=== PATIENT | female | born 1935 | race Caucasian/White ===

== ENCOUNTER → 2018-05-29 | Outpatient (CLI) | payer MEDICARE, BC ==
--- NOTE | 2018-05-29 10:23 | Diagnostic Imaging Report ---
INDICATION: Fall on ice. COMPARISON: None FINDINGS: Frontal and lateral radiographic views of the right tibia and fibula were obtained. There are postsurgical changes of previous ORIF of the right ankle. 3 metallic pins are seen traversing the medial malleolus. Orthopedic sideplate and screws are seen traversing the lateral margins of the distal fibula. No unexpected radiopaque foreign bodies are seen. There is no evidence of hardware fracture or failure. There is mild generalized soft tissue edema about the right ankle. There is, however, no evidence of acute fracture or dislocation. Note is made of moderate calcified aortic atherosclerosis. IMPRESSION: 1. Postsurgical changes to the right ankle as described above. 2. Soft tissue edema about the right ankle, but no definite acute fracture or dislocation. Dictated by: Dictated on workstation # [id number]
--- NOTE | 2018-05-29 11:29 | Diagnostic Imaging Report ---
INDICATION: Fell on ice two weeks ago. FINDINGS: Severe soft tissue swelling about the ankle lateral greater than medial is present. Pins transfix the medial malleolus and there are plate and screws at the distal fibula. No unhealed or acute fracture line is found. No disruption of the hardware. No dislocation of the ankle. IMPRESSION: Postsurgical changes with no residual fracture evident. Severe swelling about the ankle but no acute bony injury or hardware disruption identified. Dictated by: Dictated on workstation # [id number]
== END ==
LOC: RAD FS 08:58
PROVIDERS: ATTEND Nurse Practitioner
DX: S93.401A Sprain of unspecified ligament of right ankle, initial encounter (principal); I70.0 Atherosclerosis of aorta; R60.0 Localized edema; M79.661 Pain in right lower leg; W00.9XXA Unspecified fall due to ice and snow, initial encounter; Z98.890 Other specified postprocedural states
CPT/HCPCS: 73590; 73610

== ENCOUNTER → 2018-12-18 | Outpatient (CLI) | payer MEDICARE ==
--- NOTE | 2018-12-18 15:21 | Diagnostic Imaging Report ---
PROCEDURE: MRI lumbar spine. TECHNIQUE: Multiplanar, multisequence MRI of the lumbar spine was performed without contrast. INDICATION: Increasing low back pain. Patient reports multiple falls. COMPARISON: No prior MRI studies are available for comparison. FINDINGS: There is scoliotic curvature to the lumbar spine, convex to the right in the upper portion and convex to the left in the lower portion. There is normal lordotic curvature. There is minimal retrolisthesis of L3 on L4. There is some anterior and central compression deformity involving the T12 vertebral body. This does demonstrate some low signal on T1-weighted images consistent with acute or subacute fracture. No definite retropulsion is seen. The lumbar vertebrae demonstrate normal stature and are without evidence of acute compression fracture. There is severe degenerative disc disease throughout the lumbar spine with variable disc space narrowing and desiccation with marginal osteophyte formation. The conus is unremarkable at the T12 level. T11-T12: The central canal is patent. Neural foramina appear patent. T12-L1: The central canal and neural foramina are widely patent. L1-L2: The central canal is widely patent. Neural foramina appear patent. L2-L3: Broad-based disc/osteophyte complex indents the ventral thecal sac. There are facet changes. Central canal is patent, although there is severe bilateral lateral recess stenosis. There also appears to be moderate bilateral neural foraminal stenosis. L3-L4: Broad-based disc/osteophyte complex indents the ventral thecal sac. Central canal is patent. There is severe bilateral lateral recess stenosis. There is severe right and mild left neural foraminal stenosis. L4-L5: Broad-based disc/osteophyte complex and facet changes produce severe central canal stenosis. There is complete effacement of the thecal sac. Severe left and moderate right neural foraminal stenosis is seen. L5-S1: Facet changes are noted. There is broad-based disc/osteophyte complex present. Thecal sac is completely effaced with no identifiable CSF. Neural foramina are patent. Paraspinous tissues are unremarkable. IMPRESSION: 1. Severe lumbar spondylosis and scoliosis, as described. This is most severe at the L4-L5 level where there is complete effacement of the thecal sac. There is multilevel lateral recess and neural foraminal stenosis, described level by level above. No acute lumbar compression fracture is seen. There does appear to be an acute/subacute superior endplate fracture involving the T12 vertebral body. No retropulsion is seen. Dictated by: Dictated on workstation # [id number]
== END ==
LOC: RAD 14:05
PROVIDERS: ATTEND Family Medicine
DX: M41.86 Other forms of scoliosis, lumbar region (principal); M43.8X4 Other specified deforming dorsopathies, thoracic region; M47.816 Spondylosis without myelopathy or radiculopathy, lumbar region; M48.061 Spinal stenosis, lumbar region without neurogenic claudication; M51.36 Other intervertebral disc degeneration, lumbar region
CPT/HCPCS: 72148

== ENCOUNTER → 2020-03-30 | Outpatient (CLI) | payer MEDICARE ==
--- NOTE | 2020-03-30 11:12 | Diagnostic Imaging Report ---
INDICATION: Left-sided abdominal pain. COMPARISON: None FINDINGS: 2 frontal radiographic views of the abdomen were obtained. Small bowel loops are nondistended. There is no large collection of free intraperitoneal air. No unexpected extraosseous calcifications or radiopaque foreign bodies are seen. Osseous structures show moderate levoscoliotic deformity lumbar spine with advanced multilevel degenerative changes. Included portions of the lung bases are clear. IMPRESSION: Nonobstructed small bowel gas pattern. Dictated by: Dictated on workstation # [id number]
== END ==
LOC: RAD FS 10:39
PROVIDERS: ATTEND Family Medicine
DX: K57.92 Diverticulitis of intestine, part unspecified, without perforation or abscess without bleeding (principal)
CPT/HCPCS: 74018

== ENCOUNTER 2020-11-29 10:06 | Observation (INO) | payer MEDICARE ==
[~2020-11-29] VITALS: Ht 157.5 cm; Wt 78.5 kg
--- OUTSIDE RECORDS SUMMARY | 2020-11-29 10:10 | XMS REPORT | Clinical Summary ---
Author Author [facility] Organization [facility] Address Unknown Phone Unavailable Care Team Providers Care Dynamite Shooter Name Role Phone PCP Unavailable Source Comments [facility] ([facility]) documents do [facility] appear [facility] the [facility] Allergies Not on File Medications Please verify current medications with patient. Not on file Active Problems Not on file Social History Date Tobacco Use Types Packs/Day Years Used Never Assessed Sex Assigned at Date Recorded Not on file Last Filed Vital Signs Not on file Plan of Treatment Health Maintenance Due Date Last Done Comments COVID-19 Vaccine (1) 1947 DXA Scan 09/12/1999 Pneumococcal Vaccine: 65+ 09/12/1999 Years (1 of 1 - PPSV23) Influenza Vaccine (#1) 2020 HPV Vaccine Aged Out No longer eligible based on patient's age to complete this topic Results Not on filefrom Last 3 Months
[2020-11-29 10:24] LABS: BASOPHILS # (AUTO) 0.1 10^3/uL (0.0-0.1); BASOPHILS % (AUTO) 1 % (0-10); EOSINOPHILS # (AUTO) 0.4 10^3/uL (0.0-0.3); EOSINOPHILS % (AUTO) 8 % (0-10); HEMATOCRIT 35 % (35-52); HEMOGLOBIN 11.3 g/dL (11.5-16.0); LYMPHOCYTES # (AUTO) 2.1 X 10^3 (1.0-4.0); LYMPHOCYTES % (AUTO) 36 % (12-44); MEAN CORPUSCULAR HEMOGLOBIN 33 pg (25-34); MEAN CORPUSCULAR HGB CONC 32 g/dL (32-36); MEAN CORPUSCULAR VOLUME 103 fL (80-99); MONOCYTES # (AUTO) 0.3 X 10^3 (0.0-1.0); MONOCYTES % (AUTO) 6 % (0-12); NEUTROPHILS # (AUTO) 2.8 X 10^3 (1.8-7.8); NEUTROPHILS % (AUTO) 49 % (42-75); PLATELET COUNT 282 10^3/uL (130-400); WHITE BLOOD COUNT 5.6 10^3/uL (4.3-11.0)
--- NOTE | 2020-11-29 10:26 | ED Syncope ---
General Stated Complaint: SYNCOPAL EPISODE History of Present Illness Date Seen by Provider: Nov 29, 2020 Time Seen by Provider: 10:21 Initial Comments 85-year-old female presents after passing out at home. Patient was walking into her garage getting ready to leave to go [facility] [employer] when she felt lightheaded and the next thing she knew she was waking up on the ground. She does not remember falling, it happened suddenly and the only preceding symptom she had was the dizziness. Denies chest pain, palpitations, rapid heart rate or shortness of air. Denies abdominal pain, nausea vomiting. Denies preceding illness, fever or chills. No significant heart history. Patient does state that she has been seen physical therapy for ongoing vertigo, she takes meclizine frequently for t he same. She has not been evaluated for any heart problems. Patient denies any injury or pain. States that she is feeling better on arrival Allergies and Home Medications Allergies Coded Allergies: No Known Drug Allergies (Unverified , 11/29/20) Patient Home Medication List Home Medication List Reviewed: Yes Review of Systems Constitutional: No chills; dizziness; No fever, No malaise, No weakness Respiratory: No cough, No short of breath Cardiovascular: No chest pain, No edema, No palpitations; syncope Gastrointestinal: No abdominal pain, No loss of appetite, No nausea, No vomiting Psychiatric/Neurological: Denies Headache, Denies Numbness, Denies Paresthesia, Denies Seizure, Denies Tingling, Denies Tremors, Denies Weakness Past [id number]-Mvwgfr Hx Patient Social History Tobacco Use?: No Alcohol Use?: No Physical Exam Vital Signs Vital Signs - First Documented 11/29/20 10:07 Temp 36.2 Pulse 42 Resp 15 B/P (MAP) 160/57 (91) Pulse Ox 97 O2 Delivery Room Air Capillary Refill : Height, Weight, BMI Height: '" Weight: lbs. oz. kg; BMI Method: General Appearance: No Apparent Distress, WD/WN HEENT: PERRL/EOMI, Normal ENT Inspection Neck: Non Tender, Supple Cardiovascular: Regular Rate, Rhythm, No Edema, No Gallop, No JVD, No Murmur Respiratory: Chest Non Tender, Lungs Clear, Normal Breath Sounds, No Accessory Muscle Use Gastrointestinal: Non Tender, Soft Back: Normal Inspection, No CVA Tenderness Extremities: Normal Capillary Refill, Normal Range of Motion, Non Tender Neurologic/Psychiatric: Alert, Oriented x3, No Motor/Sensory Deficits, Normal Mood/Affect Cranial Nerves: Normal Hearing, Normal Speech Motor/Sensory: No Motor Deficit, No Sensory Deficit, No Pronator Drift Skin: Normal Color, Warm/Dry Progress/Results/Core Measures Results/Orders Lab Results Laboratory Tests Test 11/29/20 10:15 Range/Units White Blood Count 5.6 4.3-11.0 10^3/uL Red Blood Count 3.41 L 3.80-5.11 10^6/uL Hemoglobin 11.3 L 11.5-16.0 g/dL Hematocrit 35 35-52 % Mean Corpuscular Volume 103 H 80-99 fL Mean Corpuscular Hemoglobin 33 25-34 pg Mean Corpuscular Hemoglobin Concent 32 32-36 g/dL Red Cell Distribution Width 15.0 H 10.0-14.5 % Platelet Count 282 130-400 10^3/uL Mean Platelet Volume 9.0 9.0-12.2 fL Immature Granulocyte % (Auto) 0 % Neutrophils (%) (Auto) 49 42-75 % Lymphocytes (%) (Auto) 36 12-44 % Monocytes (%) (Auto) 6 0-12 % Eosinophils (%) (Auto) 8 0-10 % Basophils (%) (Auto) 1 0-10 % Neutrophils # (Auto) 2.8 1.8-7.8 X 10^3 Lymphocytes # (Auto) 2.1 1.0-4.0 X 10^3 Monocytes # (Auto) 0.3 0.0-1.0 X 10^3 Eosinophils # (Auto) 0.4 H 0.0-0.3 10^3/uL Basophils # (Auto) 0.1 0.0-0.1 10^3/uL Immature Granulocyte # (Auto) 0.0 0.0-0.1 10^3/uL Sodium Level 142 135-145 MMOL/L Potassium Level 4.1 3.6-5.0 MMOL/L Chloride Level 109 H 98-107 MMOL/L Carbon Dioxide Level 21 21-32 MMOL/L Anion Gap 12 5-14 MMOL/L Blood Urea Nitrogen 21 H 7-18 MG/DL Creatinine 0.78 0.60-1.30 MG/DL Estimat Glomerular Filtration Rate 70 BUN/Creatinine Ratio 27 Glucose Level 184 H 70-105 MG/DL Calcium Level 8.7 8.5-10.1 MG/DL Corrected Calcium 8.7 8.5-10.1 MG/DL Total Bilirubin 0.6 0.1-1.0 MG/DL Aspartate Amino Transf (AST/SGOT) 14 5-34 U/L Alanine Aminotransferase (ALT/SGPT) 8 0-55 U/L Alkaline Phosphatase 45 40-136 U/L Troponin I < 0.30 <0.30 NG/ML Total Protein 6.1 L 6.4-8.2 GM/DL Albumin 4.0 3.2-4.5 GM/DL My Orders Orders - ROVENSTINE,GRIFFIN L DO Ed Iv/Invasive Line Start (11/29/20 10:19) Troponin I Fs (11/29/20 10:19) Cbc With Automated Diff (11/29/20 10:19) Comprehensive Metabolic Panel (11/29/20 10:19) Chest 1 View Ap/Pa Only (11/29/20 10:19) Ekg Tracing (11/29/20 10:19) Vital Signs/I&O 11/29/20 10:07 Temp 36.2 Pulse 42 Resp 15 B/P (MAP) 160/57 (91) Pulse Ox 97 O2 Delivery Room Air Progress Progress Note : Progress Note Patient bradycardic when initially placed 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 Impression Primary Impression: Episode of syncope Qualified Codes: R55 - Syncope and collapse Additional Impression: Bradycardia Disposition: 30 STILL A PATIENT Condition: Stable Admissions Decision to Admit Reason: Admit from ER (General) Decision to Admit/Date: Nov 29, 2020 Time/Decision to Admit Time: 10:26 Departure-Patient Inst. Referrals: SELF,RASHEED EDWARD (PCP/Family) Primary Care Physician GRIFFIN OSUNA DO Nov 29, 2020 10:26
--- NOTE | 2020-11-29 10:47 | Diagnostic Imaging Report ---
EXAM: CHEST 1 VIEW AP/PA ONLY. INDICATION: Syncope. COMPARISON: None. FINDINGS: Normal heart size and central pulmonary vascularity. Calcified aorta. No focal pulmonary opacity, pleural effusion, or pneumothorax. No acute osseous findings. IMPRESSION: No acute cardiopulmonary findings. Dictated by: Dictated on workstation # [id number]
[2020-11-29 10:57] LABS: CHLORIDE 109 MMOL/L (98-107); POTASSIUM 4.1 MMOL/L (3.6-5.0); SODIUM 142 MMOL/L (135-145)
[2020-11-29 10:58] LABS: ALANINE AMINOTRANSFERASE 8 U/L (0-55); ALKALINE PHOSPHATASE 45 U/L (40-136); BILIRUBIN,TOTAL 0.6 MG/DL (0.1-1.0); BUN/CREATININE RATIO 27; CALCIUM 8.7 MG/DL (8.5-10.1); CARBON DIOXIDE 21 MMOL/L (21-32); CREATININE SERUM 0.78 MG/DL (0.60-1.30); GFR ESTIMATED 70; GLUCOSE 184 MG/DL (70-105); TOTAL PROTEIN 6.1 GM/DL (6.4-8.2)
[2020-11-29 13:15] VITALS: BP 177/82
[2020-11-29 15:56] VITALS: BP 179/85
--- NOTE | 2020-11-29 16:11 | Consultation-Cardiology ---
HPI-Cardiology Cardiology Consultation: Date of Consultation 11/29/20 Time Seen by a Provider: 14:00 Date of Admission Attending Physician Pilo Ahn MD Admitting Physician Scott Trammell MD Consulting Physician AGUSTO KENT MD, MA, FACP, FACC, FSCAI, CCDS HPI: Chief Complaint: CC: Syncope HPI 85 yo woman who had a syncopal episode while walking up to her car to go the [employer] today. was with her. Apparently, she did not sustain any injury and came around in a few seconds. Has a chronic history of vertigo, but has never had velvet syncope. No cp or palp or shortness of breath or swelling Review of Systems-Cardiology Review of Systems Constitutional: No malaise, No tiredness, No weight loss, No weight gain Eyes: No vision change Ears/Nose/Throat: chronic hearing loss; No ear discharge, No nasal drainage, No recent hearing loss Respiratory: As described under HPI Cardiovascular: As described under HPI Gastrointestinal: No diarrhea, No nausea, No vomiting Genitourinary: No dysuria, No hematuria, No urine frequency changes Musculoskeletal: back pain (chronic), joint pain (chronic) Skin: No rash, No ulcerations Psychiatric/Neurological: No seizure, No focal weakness, No syncope Hematologic: No bleeding abnormalities PJP-Nysiow-Jfsimt Hx Patient Social History Smoking Status: Never a Smoker Have you traveled recently?: No Alcohol Use?: No Pt feels they are or have been: No Past Medical History PMH As described under Assessment. Allergies and Home Medications Allergies Coded Allergies: No Known Drug Allergies (Unverified , 11/29/20) Patient Home Medication List Home Medication List Reviewed: Yes Physical Exam-Cardiology Physical Exam Vital Signs/I&O 11/29/20 11/29/20 11/29/20 11/29/20 10:07 11:48 13:15 13:37 Temp 36.2 36.8 Pulse 42 75 73 Resp 15 10 20 B/P (MAP) 160/57 (91) 166/60 177/82 (113) Pulse Ox 97 95 97 99 O2 Delivery Room Air Room Air Room Air Room Air 11/29/20 11/29/20 15:30 15:56 Temp 36.7 Pulse 74 75 Resp 16 B/P (MAP) 179/85 (116) Pulse Ox 96 O2 Delivery Room Air Capillary Refill : Less Than 3 Seconds Constitutional: AAO x 3, well-developed, well-nourished HEENT: PERRL, EOMI; No xanthelasmas are seen Neck: carotid pulses are 2 + bilaterally, with good upstrokes Respiratory: No accessory muscle use; other (good, bilateral air entry) Cardiovascular: regular rate-rhythm, S1 and S2, systolic murmur (soft CHET at card base) Gastrointestinal: No tender; soft; No guarding, No rebound; audible bowel sounds Extremities: No clubbing, No cyanosis, No significant edema Neurologic/Psychiatric: oriented x 3, other (moves all limbs equally) Skin: No rash on exposed areas, No ulcerations on exposed areas Data Review Labs Laboratory Tests 11/29/20 10:15: White Blood Count 5.6, Red Blood Count 3.41L, Hemoglobin 11.3L, Hematocrit 35, Mean Corpuscular Volume 103H, Mean Corpuscular Hemoglobin 33, Mean Corpuscular Hemoglobin Concent 32, Red Cell Distribution Width 15.0H, Platelet Count 282, Mean Platelet Volume 9.0, Immature Granulocyte % (Auto) 0, Neutrophils (%) (Auto) 49, Lymphocytes (%) (Auto) 36, Monocytes (%) (Auto) 6, Eosinophils (%) (Auto) 8, Basophils (%) (Auto) 1, Neutrophils # (Auto) 2.8, Lymphocytes # (Auto) 2.1, Monocytes # (Auto) 0.3, Eosinophils # (Auto) 0.4H, Basophils # (Auto) 0.1, Immature Granulocyte # (Auto) 0.0, Sodium Level 142, Potassium Level 4.1, Chloride Level 109H, Carbon Dioxide Level 21, Anion Gap 12, Blood Urea Nitrogen 21H, Creatinine 0.78, Estimat Glomerular Filtration Rate 70, BUN/Creatinine Ratio 27, Glucose Level 184H, Calcium Level 8.7, Corrected Calcium 8.7, Total Bilirubin 0.6, Aspartate Amino Transf (AST/SGOT) 14, Alanine Aminotransferase (ALT/SGPT) 8, Alkaline Phosphatase 45, Troponin I < 0.30, Total Protein 6.1L, Albumin 4.0 Laboratory Tests 11/29/20 10:15 A/P-Cardiology Assessment/Admission Diagnosis Syncope of undetermined etiology RBBB on ECG, probably chronic Hypertension Chronic joint pains Discussion and Recomendations * Tele * Echo * Carotid u/s * Amlodipine for bp control * May need ILR * I discussed her CV issues and our plan with her and her family in detail and answered questions AGUSTO KENT MD FACP FAC CCDS Nov 29, 2020 16:11
[2020-11-29] MEDS ORDERED: amLODIPine 5 MG (NORVASC) TAB PO ONE (16:15)
[2020-11-29] MEDS: MECLIZINE 25 MG (ANTIVERT) TAB PO SCH (16:49)
[2020-11-29] MEDS ORDERED: ACETAMINOPHEN 325 MG TABLET PO PRN (17:15)
[2020-11-29 20:00] VITALS: BP 151/73
[2020-11-29] MEDS ORDERED: CATHETER FLUSH 10 ML SYR IV PRN (20:15)
[2020-11-29] MEDS: CATHETER FLUSH 10 ML SYR IV SCH (20:55)
[2020-11-29 23:43] VITALS: BP 143/75
[2020-11-30 04:13] VITALS: BP 184/82
[2020-11-30 05:48] LABS: BASOPHILS # (AUTO) 0.1 10^3/uL (0.0-0.1); BASOPHILS % (AUTO) 1 % (0-10); EOSINOPHILS # (AUTO) 0.4 10^3/uL (0.0-0.3); EOSINOPHILS % (AUTO) 10 % (0-10); HEMATOCRIT 34 % (35-52); HEMOGLOBIN 10.5 g/dL (11.5-16.0); LYMPHOCYTES # (AUTO) 1.8 10^3/uL (1.0-4.0); LYMPHOCYTES % (AUTO) 44 % (12-44); MEAN CORPUSCULAR HEMOGLOBIN 34 pg (25-34); MEAN CORPUSCULAR HGB CONC 31 g/dL (32-36); MEAN CORPUSCULAR VOLUME 108 fL (80-99); MEAN PLATELET VOLUME 9.2 fL (9.0-12.2); MONOCYTES # (AUTO) 0.3 10^3/uL (0.0-1.0); MONOCYTES % (AUTO) 7 % (0-12); NEUTROPHILS # (AUTO) 1.5 10^3/uL (1.8-7.8); NEUTROPHILS % (AUTO) 37 % (42-75); PLATELET COUNT 219 10^3/uL (130-400); WHITE BLOOD COUNT 4.1 10^3/uL (4.3-11.0)
[2020-11-30 05:57] LABS: POTASSIUM 4.1 MMOL/L (3.6-5.0)
[2020-11-30 05:58] LABS: CALCIUM 8.8 MG/DL (8.5-10.1)
[2020-11-30 06:02] LABS: CREATININE SERUM 0.84 MG/DL (0.60-1.30)
[2020-11-30 06:05] LABS: MAGNESIUM 2.2 MG/DL (1.6-2.4)
[2020-11-30] MEDS: CATHETER FLUSH 10 ML SYR IV SCH ×3 (06:19→22:53)
[2020-11-30 08:00] VITALS: BP 188/77
[2020-11-30] MEDS: amLODIPine 5 MG (NORVASC) TAB PO SCH (08:17)
--- NOTE | 2020-11-30 09:44 | Diagnostic Imaging Report ---
PROCEDURE: US carotid duplex, bilateral. TECHNIQUE: Multiple real-time grayscale images were obtained over the carotid arteries in various projections, bilaterally. Additional spectral analysis and color Doppler duplex images were also obtained. INDICATION: Syncopal episode. There is mild plaque in both carotid bulbs and bifurcations extending into the proximal internal carotid arteries. However, velocities are normal bilaterally. No velocity elevation or stenosis is seen. Both vertebral arteries show antegrade flow. IMPRESSION: Mild bilateral carotid plaque. There is no evidence of a hemodynamically significant stenosis. Parameters based on the consensus panel Stapleton-Scale and Doppler ultrasound criteria published February 2003, Radiology, Volume 229. DOPPLER (peak systolic velocity M/S Right Left CCA 1.1 .91 ICA Proximal .76 .76 ICA Mid .77 1.1 ICA Distal .83 1.1 RATIO .80 1.3 ECA 1.2 .89 VERT .62 .85 Dictated by: Dictated on workstation # [id number]
--- NOTE | 2020-11-30 09:49 | Progress Note - Cardiology ---
Cardiology SOAP Progress Note Subjective: Gen malaise No cp or palp or syncope or shortness of breath No n/v/d Objective: I&O/Vital Signs 11/29/20 11/30/20 11/30/20 11/30/20 23:43 01:00 04:13 06:44 Temp 35.0 35.7 Pulse 59 60 57 60 Resp 17 17 B/P (MAP) 143/75 (97) 184/82 (116) Pulse Ox 97 95 O2 Delivery Room Air Room Air 11/30/20 11/30/20 08:00 08:00 Temp 36.4 Pulse 65 Resp 16 B/P (MAP) 188/77 (114) Pulse Ox 95 96 O2 Delivery Room Air Room Air 11/30/20 00:00 Intake Total 520 ml Output Total 300 ml Balance 220 ml Constitutional: AAO x 3, well-developed, well-nourished Respiratory: No accessory muscle use; other (good, bilateral air entry) Cardiovascular: regular rate-rhythm, S1 and S2, systolic murmur (soft CHET at card base) Gastrointestional: No tender; soft; No guarding, No rebound; audible bowel sounds Extremities: No clubbing, No cyanosis, No significant edema Neurologic/Psychiatric: oriented x 3, other (moves all limbs equally) Skin: No rash on exposed areas, No ulcerations on exposed areas Results/Procedures: Labs Laboratory Tests 11/29/20 10:15: White Blood Count 5.6, Red Blood Count 3.41L, Hemoglobin 11.3L, Hematocrit 35, Mean Corpuscular Volume 103H, Mean Corpuscular Hemoglobin 33, Mean Corpuscular Hemoglobin Concent 32, Red Cell Distribution Width 15.0H, Platelet Count 282, Mean Platelet Volume 9.0, Immature Granulocyte % (Auto) 0, Neutrophils (%) (Auto) 49, Lymphocytes (%) (Auto) 36, Monocytes (%) (Auto) 6, Eosinophils (%) (Auto) 8, Basophils (%) (Auto) 1, Neutrophils # (Auto) 2.8, Lymphocytes # (Auto) 2.1, Monocytes # (Auto) 0.3, Eosinophils # (Auto) 0.4H, Basophils # (Auto) 0.1, Immature Granulocyte # (Auto) 0.0, Sodium Level 142, Potassium Level 4.1, Chloride Level 109H, Carbon Dioxide Level 21, Anion Gap 12, Blood Urea Nitrogen 21H, Creatinine 0.78, Estimat Glomerular Filtration Rate 70, BUN/Creatinine Ratio 27, Glucose Level 184H, Calcium Level 8.7, Corrected Calcium 8.7, Total Bilirubin 0.6, Aspartate Amino Transf (AST/SGOT) 14, Alanine Aminotransferase (ALT/SGPT) 8, Alkaline Phosphatase 45, Troponin I < 0.30, Total Protein 6.1L, Albumin 4.0 11/29/20 19:52: Troponin I < 0.028 11/29/20 22:16: Troponin I < 0.028 11/30/20 05:44: White Blood Count 4.1L, Red Blood Count 3.13L, Hemoglobin 10.5L, Hematocrit 34L, Mean Corpuscular Volume 108H, Mean Corpuscular Hemoglobin 34, Mean Corpuscular Hemoglobin Concent 31L, Red Cell Distribution Width 15.0H, Platelet Count 219, Mean Platelet Volume 9.2, Immature Granulocyte % (Auto) 1, Neutrophils (%) (Auto) 37L, Lymphocytes (%) (Auto) 44, Monocytes (%) (Auto) 7, Eosinophils (%) (Auto) 10, Basophils (%) (Auto) 1, Neutrophils # (Auto) 1.5L, Lymphocytes # (A uto) 1.8, Monocytes # (Auto) 0.3, Eosinophils # (Auto) 0.4H, Basophils # (Auto) 0.1, Immature Granulocyte # (Auto) 0.0, Sodium Level 140, Potassium Level 4.1, Chloride Level 110H, Carbon Dioxide Level 24, Anion Gap 6, Blood Urea Nitrogen 17, Creatinine 0.84, Estimat Glomerular Filtration Rate 64, BUN/Creatinine Ratio 20, Glucose Level 100, Calcium Level 8.8, Magnesium Level 2.2, Thyroid Stimulating Hormone (TSH) 1.75 Laboratory Tests 11/29/20 10:15 11/30/20 05:44 A/P: Assessment: Syncope of undetermined etiology RBBB on ECG, probably chronic Hypertension, uncontrolled Chronic joint pains Plan: * Syncope w/u underway. Carotid and echo results awaited * No arrhythmia seen so far. May need ILR if no cause for syncope found * BP not well controlled. Increase amlodipine * Continue tele and monitor labs AGUSTO KENT MD FACP [facility] CCDS Nov 30, 2020 09:49
[2020-11-30] MEDS ORDERED: amLODIPine 5 MG (NORVASC) TAB PO ONE (10:00)
[2020-11-30] MEDS ORDERED: OMG1KC PO (10:27)
[2020-11-30] MEDS ORDERED: ALEN70TA80 PO (10:27)
[2020-11-30] MEDS ORDERED: CALC-823 PO (10:27)
[2020-11-30] MEDS ORDERED: NON-FORMULARY MEDICATION 1 EA EA (Alendronate Sodium 70 MG) PO SCH (11:45)
[2020-11-30 12:00] VITALS: BP 165/72
--- NOTE | 2020-11-30 14:03 | Physical Therapy Evaluation ---
PT Evaluation-General Medical Diagnosis Admission Date Nov 29, 2020 at 13:07 Medical Diagnosis: syncopal episode/bradycardia Onset Date: Nov 29, 2020 Therapy Diagnosis Therapy Diagnosis: debility/weakness Precautions Precautions/Isolations: Fall Prevention, Standard Precautions Referral Physician: Gigi Reason for Referral: Evaluation/Treatment Medical History Additional Medical History hypotension and vertigo per patient report Current History ER secondary to syncopal episode at home Reviewed History: Yes Social History Home: Single Level Current Living Status: Spouse Entry Into Home: Stairs With Railing PT Steps Into Home: 3 Prior Prior Level of Function SCALE: Activities may be completed with or without assistive devices. 9-Sqlaxohkbd-bfygzfl completes the activity by him/herself with no assistance from a helper. 5-Set-up or Clean-up Assistance-helper sets up or cleans up; patient completes activity. [place] assists only prior to or following the activity. 4-Supervision or Touching Assistance-helper provides verbal cues and/or touching/steadying and/or contact guard assistance as patient completes activity. Assistance may be provided throughout the activity or intermittently. 3-Partial/Moderate Assistance-helper does LESS THAN HALF the effort. [place] lifts, holds or supports trunk or limbs, but provides less than half the effort. 2-Substantial/Maximal Assistance-helper does MORE THAN HALF the effort. [place] lifts or holds trunk or limbs and provides more than half the effort. 9-Dmrpuarcd-ajvlom does ALL the effort. Patient does none of the effort to complete the activity. Or, the assistance of 2 or more helpers is required for the patient to complete the activity. If activity was not attempted, code reason: 7-Patient Refused. 9-Not Applicable-not attempted and the patient did not perform the activity before the current illness, exacerbation or injury. 10-Not Attempted due to Environmental Limitations-(lack of equipment, weather restraints, etc.). 88-Not Attempted due to Medical Conditions or Safety Concerns. Bed Mobility: 6 Transfers (B,C,W/C): 6 Gait: 6 Stairs: 6 Indoor Mobility (Ambulation): Independent Stairs: Independent Prior Devices Use: None patient reports she has a 4WW at home but does not use it PT Evaluation-Current Subjective Patient agrees to PT. No c/o. She reports she hopes to go home today. Patient also reports she has been up independently in room without difficulty. Objective Patient Orientation: Normal For Age ROM/Strength ROM Lower Extremities bilateral LE WFL Strength Lower Extremities 4-/5 grossly bilateral LE Integumentary/Posture Bowel Incontinence: No Bladder Incontinence: No Posture WFL Neuromuscular (Tone, Coordination, Reflexes) grossly intact Sensory Vision: Wears Glasses Hearing: Functional Transfers Sit to Lying (QC): 6 Lying to Sitting/Side of Bed(Q: 6 Sit to Stand (QC): 6 Gait Does the Patient Walk?: Yes Mode of Locomotion: Walk Anticipated Mode of Locomotion: Walk Walk 10 feet (QC): 6 Walk 50 ft with 2 Turns(QC): 6 Walk 150 ft (QC): 6 Distance: 300' Gait Assistive Device: FWW Comments/Gait Description safe and functional with no deviation Balance Sitting Static: Normal Sitting Dynamic: Normal Standing Static: Normal Standing Dynamic: Normal Assessment/Needs 85 y.o. female, is currently at [facility] with all gross motor skills and does not require skilled therapy intervention at this time. Rehab Potential: Fair PT Plan Treatment/Plan Treatment Plan: Discontinue PT Treatment Duration: Nov 30, 2020 Frequency: 1 time per week Estimated Hrs Per Day: .25 hour per day Patient and/or Family Agrees t: Yes Discharge Recommendations Therapy Discharge Recommendati: Home & Family Time/GCodes Time In: 1310 Time Out: 1324 Total Billed Treatment Time: 14 Total Billed Treatment 1 visit [facility] 14 min TRACE CONKLIN PT Nov 30, 2020 14:03
[2020-11-30 16:00] VITALS: BP 129/78
--- NOTE | 2020-11-30 16:48 | History & Physical-Hospitalist ---
GRIFFIN FREEMAN 11/30/20 1648: History of Present Illness HPI/Chief Complaint 85 yo WF w/ PMH of chronic vertigo presents after a syncopal episode yesterday resulting in a fall with no reported injuries or pain. On 11/29, pt reports walking to her garage and suddenly went unconscious and fell down the steps to the floor where her found her. They measured her high blood pressure and decided to go to the ER in [place]. Today on 11/30, pt appears well and in no distress. Denies fever, chills, vomiting, diarrhea, cough, SOB, headache, chest pain, or swelling. Cardiology was consulted for etiology of syncopal episode and plans for telemetry, echo, carotid us, and potential ILR. PT/OT will work on her chronic vertigo. Source: patient Exam Limitations: no limitations Date Seen 11/30/20 Time Seen by a Provider: 10:00 Attending Physician Tere Denney DO PCP Self,Scott EDWARD Referring Physician Date of Admission Nov 29, 2020 at 13:07 Home Medications & Allergies Home Medications Reviewed patient Home Medication Reconciliation performed by pharmacy medication reconciliations fuel verification technician and/or nursing. Patients Allergies have been reviewed. 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) Tobacco Use?: No Smoking Status: Never a Smoker Use of E-Cig and/or Vaping dev: No Substance use?: No Alcohol Use?: No Pt feels they are or have been: No Immunizations Up To Date First/Initial COVID19 Vaccinat: MAY, 2020 Second COVID19 Vaccination Simeon: June, Current Status Advance Directives: Yes Advance Directive Location: Home Communicates: Verbally Primary Language: Indonesian Preferred Spoken Language: Indonesian Is interpretation needed?: No Sensory deficits: Vision impairment Implanted or Applied Medical D: None Past Medical History Arthritis Family Medical History No Pertinent Family Hx Review of Systems Constitutional: no symptoms reported EENTM: no symptoms reported Respiratory: no symptoms reported Cardiovascular: no symptoms reported Gastrointestinal: no symptoms reported Genitourinary: no symptoms reported : No Musculoskeletal: no symptoms reported Skin: no symptoms reported Psychiatric/Neurological: No Symptoms Reported Physical Exam Physical Exam Vital Signs Vital Signs - First Documented 11/29/20 10:07 Temp 36.2 Pulse 42 Resp 15 B/P (MAP) 160/57 (91) Pulse Ox 97 O2 Delivery Room Air Capillary Refill : Less Than 3 Seconds Height, Weight, BMI Height: '" Weight: lbs. oz. kg; 31.64 BMI Method: General Appearance: No Apparent Distress, WD/WN HEENT: PERRL/EOMI, Photophobia Neck: Normal Inspection, Non Tender, Supple Respiratory: Chest Non Tender, Normal Breath Sounds, No Accessory Muscle Use, No Respiratory Distress Cardiovascular: Regular Rate, Rhythm, No Edema, No Murmur Gastrointestinal: Non Tender, Soft Extremity: Normal Capillary Refill, Normal Inspection, Non Tender, No Calf Tenderness, No Pedal Edema Neurologic/Psychiatric: Alert, Oriented x3, Normal Mood/Affect Skin: Normal Color, Warm/Dry Results Results/Procedures Labs Laboratory Tests 11/29/20 10:15 11/30/20 05:44 Patient resulted labs reviewed. 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 Dr. Castro will place an event recorder. Heart rate has been 57. Echocardiogram and carotid ultrasound will be done. BP is severely elevated and Amlodipine of [address] Castro. 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) Smoking Status: Never a Smoker Substance use?: No Alcohol Use?: No Past Medical History Arthritis Review of Systems Constitutional: see HPI Physical Exam Physical Exam General Appearance: No Apparent Distress, Chronically ill Eyes: Right Eye Normal Inspection, Right Eye PERRL HEENT: PERRL/EOMI, Normal ENT Inspection, Pharynx Normal, Moist Mucous Membranes Neck: Full Range of Motion, Normal Inspection, Non Tender Respiratory: Chest Non Tender, Lungs Clear, Normal Breath Sounds, No Accessory Muscle Use, No Respiratory Distress Cardiovascular: Regular Rate, Rhythm, No Edema, No Gallop, No JVD, No Murmur, Normal Peripheral Pulses Gastrointestinal: Normal Bowel Sounds, No Organomegaly, No Pulsatile Mass, Non Tender, Soft Back: Normal Inspection, No CVA Tenderness, No Vertebral Tenderness Extremity: Normal Capillary Refill, Normal Inspection, Normal Range of Motion, Non Tender, No Calf Tenderness, No Pedal Edema Neurologic/Psychiatric: Alert, Oriented x3, No Motor/Sensory Deficits, Normal Mood/Affect Skin: Normal Color, Warm/Dry Lymphatic: No Adenopathy Assessment/Plan Admission Diagnosis Appreciate cardiology Event recorder placement Admission Status: Observation Supervisory-Addendum Brief Verification & Attestation Participated in pt care: history, MDM, physical Personally performed: exam, history, MDM, supervision of care Care discussed with: Medical Student Procedures: n/a Results interpretation: Verified all documentation Verification and Attestation of Medical Student E/M Service A medical student performed and documented this service in my presence. I reviewed and verified all information documented by the medical student and made modifications to such information, when appropriate. I personally performed the physical exam and medical decision making. Tere Denney Dec 01, 2020,05:22 GRIFFIN FREEMAN Nov 30, 2020 16:48 TERE DENNEY DO Dec 01, 2020 05:22
[2020-11-30] MEDS: MECLIZINE 25 MG (ANTIVERT) TAB PO SCH (17:25)
[2020-11-30 20:00] VITALS: BP 164/72
[2020-12-01 00:13] VITALS: BP 159/74
[2020-12-01 04:21] VITALS: BP 130/72
[2020-12-01 05:29] LABS: BASOPHILS # (AUTO) 0.1 10^3/uL (0.0-0.1); BASOPHILS % (AUTO) 1 % (0-10); EOSINOPHILS # (AUTO) 0.5 10^3/uL (0.0-0.3); EOSINOPHILS % (AUTO) 11 % (0-10); HEMATOCRIT 34 % (35-52); HEMOGLOBIN 10.5 g/dL (11.5-16.0); LYMPHOCYTES # (AUTO) 2.4 10^3/uL (1.0-4.0); LYMPHOCYTES % (AUTO) 48 % (12-44); MEAN CORPUSCULAR HEMOGLOBIN 33 pg (25-34); MEAN CORPUSCULAR HGB CONC 31 g/dL (32-36); MEAN CORPUSCULAR VOLUME 106 fL (80-99); MEAN PLATELET VOLUME 9.3 fL (9.0-12.2); MONOCYTES # (AUTO) 0.3 10^3/uL (0.0-1.0); MONOCYTES % (AUTO) 6 % (0-12); NEUTROPHILS # (AUTO) 1.7 10^3/uL (1.8-7.8); NEUTROPHILS % (AUTO) 34 % (42-75); PLATELET COUNT 236 10^3/uL (130-400)
[2020-12-01 05:39] LABS: ALBUMIN 3.5 GM/DL (3.2-4.5); POTASSIUM 4.1 MMOL/L (3.6-5.0)
[2020-12-01 05:40] LABS: CALCIUM 8.9 MG/DL (8.5-10.1)
[2020-12-01 05:42] LABS: TOTAL PROTEIN 5.8 GM/DL (6.4-8.2)
[2020-12-01 05:43] LABS: BILIRUBIN,TOTAL 0.6 MG/DL (0.1-1.0)
[2020-12-01 05:45] LABS: CREATININE SERUM 0.85 MG/DL (0.60-1.30)
[2020-12-01] MEDS: CATHETER FLUSH 10 ML SYR IV SCH (06:23)
[2020-12-01] MEDS ORDERED: OMEGA 3 (FISH OIL) 1000 MG CAP PO SCH (07:00)
[2020-12-01] MEDS ORDERED: LIDOCAINE 1% INJ 20 ML 20 ML VIAL ONE (07:20)
[2020-12-01 07:43] VITALS: BP 180/81
[2020-12-01] MEDS: amLODIPine 5 MG (NORVASC) TAB PO SCH (07:49)
[2020-12-01] MEDS ORDERED: CALCIUM CARBONATE 500 MG (TUMS) TAB.CHEW PO SCH (09:00)
[2020-12-01] MEDS ORDERED: amLODIPine 10 MG (NORVASC) TAB PO SCH (09:00)
[2020-12-01] MEDS ORDERED: LIDOCAINE 1% INJ 20 ML 20 ML VIAL INJ ONE (09:15)
[2020-12-01] MEDS ORDERED: AMLO-251 PO (10:37)
--- NOTE | 2020-12-01 10:38 | Discharge Summary ---
Discharge Summary Hospital Course Was the Problem List Reviewed?: Yes Problems/Dx: (1) Episode of syncope Status: Acute Qualifiers: Qualified Codes: R55 - Syncope and collapse (2) Hypertension (3) Advanced age (4) Bradycardia Status: Acute Hospital Course Date of Admission: Nov 29, 2020 at 13:07 Admission Diagnosis : Family Physician/Provider: Scott Trammell MD Date of Discharge: 12/01/20 Discharge Diagnosis: Syncope, bradycardia, hypertension Hospital Course: Hospital course: Pt had a brief hospital course, she was admitted after syncopal episode, cardiology consulted, placed on Telemetry, echocardiogram showed normal EF, carotid ultrasound showed expected carotid disease which is mild. BP remained an issue, Pt was placed on BP medication and loop recorder was placed by cardiology and she will have close follow-up with Dr. Castro. Labs and Pending Lab Test: Laboratory Tests 12/01/20 05:07: White Blood Count 5.0, Red Blood Count 3.20L, Hemoglobin 10.5L, Hematocrit 34L, Mean Corpuscular Volume 106H, Mean Corpuscular Hemoglobin 33, Mean Corpuscular Hemoglobin Concent 31L, Red Cell Distribution Width 14.9H, Platelet Count 236, Mean Platelet Volume 9.3, Immature Granulocyte % (Auto) 0, Neutrophils (%) (Auto) 34L, Lymphocytes (%) (Auto) 48H, Monocytes (%) (Auto) 6, Eosinophils (%) (Auto) 11H, Basophils (%) (Auto) 1, Neutrophils # (Auto) 1.7L, Lymphocytes # (Auto) 2.4, Monocytes # (Auto) 0.3, Eosinophils # (Auto) 0.5H, Basophils # (Auto) 0.1, Immature Granulocyte # (Auto) 0.0, Sodium Level 138, Potassium Level 4.1, Chloride Level 109H, Carbon Dioxide Level 22, Anion Gap 7, Blood Urea Nitrogen 23H, Creatinine 0.85, Estimat Glomerular Filtration Rate 63, BUN/Creatinine Ratio 27, Glucose Level 101, Calcium Level 8.9, Corrected Calcium 9.3, Total Bilirubin 0.6, Aspartate Amino Transf (AST/SGOT) 12, Alanine Aminotransferase (ALT/SGPT) 12, Alkaline Phosphatase 39L, Total Protein 5.8L, Albumin 3.5 Home Meds Active Reported Fish Oil 1,000 mg Capsule ([place] 3 Polyunsat Fatty Acids) 1,000 Mg Cap 1,000 Mg PO DAILY Calcium (Calcium Carbonate) 500 Mg Tablet 500 Mg PO DAILY Alendronate Sodium 70 Mg Tablet 70 Mg PO MONDAY Assessment/Pt Instructions Dr. Castro as scheduled PCP in 1 week Discharge Planning: <30 minutes discharge planning Discharge Instructions Discharge Diet: No Restrictions Activity as Tolerated: Yes Discharge Physical Examination Vital Signs Vital Signs Date Time Temp Pulse Resp B/P (MAP) Pulse Ox O2 Delivery O2 Flow Rate FiO2 12/01/20 08:00 97 Room Air 12/01/20 07:43 35.1 59 16 180/81 (114) General Appearance: No Apparent Distress, WD/WN, Chronically ill Respiratory: Lungs Clear Cardiovascular: Regular Rate, Rhythm Neurologic/Psychiatric: Alert, Oriented x3 Allergies: Coded Allergies: No Known Drug Allergies (Unverified , 11/29/20) Discharge Summary Date of Admission Nov 29, 2020 at 13:07 Date of Discharge Discharge Date: Dec 01, 2020 Admission Diagnosis Appreciate cardiology Event recorder placement ANNE DENNEY DO Dec 01, 2020 10:38
--- NOTE | 2020-12-01 12:11 | Progress Note ---
GRIFFIN FREEMAN 12/01/20 1211: Progress Note 85 yo WF w/ PMH of chronic vertigo presents after a syncopal episode yesterday resulting in a fall with no reported injuries or pain. On 11/29, pt reports walking to her garage and suddenly went unconscious and fell down the steps to the floor where her found her. They measured her high blood pressure and decided to go to the ER in [place]. On 11/30, pt appears well and in no distress. Denies fever, chills, vomiting, diarrhea, cough, SOB, headache, chest pain, or swelling. Cardiology was consulted for etiology of syncopal episode and plans for telemetry, echo, carotid us, and potential ILR. PT/OT will work on her chronic vertigo. On 12/01, ILR was implanted by cardiology, Carotid US showed mild plaques bilaterally, and ECHO showed 60-65% EF. Pt to be discharged today with follow up with Dr. Castro and Dr. Trammell. TERE DENNEY DO 12/02/20 0606: Supervisory-Addendum Brief Verification & Attestation Participated in pt care: history, MDM, physical Personally performed: exam, history, MDM, supervision of care Care discussed with: Medical Student Procedures: n/a Results interpretation: Verified all documentation Verification and Attestation of Medical Student E/M Service A medical student performed and documented this service in my presence. I reviewed and verified all information documented by the medical student and made modifications to such information, when appropriate. I personally performed the physical exam and medical decision making. Tere Denney Dec 02, 2020,06:06 GRIFFIN FREEMAN Dec 01, 2020 12:11 TERE DENNEY DO Dec 02, 2020 06:06
--- NOTE | 2020-12-01 12:56 | OPERATIVE REPORT ---
DATE OF SERVICE: 11/29/2020 PREOPERATIVE DIAGNOSIS: Syncope. POSTOPERATIVE DIAGNOSIS: Syncope. PROCEDURE: Implantable loop recorder implantation. INDICATIONS: The patient is an 85-year-old lady, who presented with syncope and telemetry has not indicated any significant arrhythmia. Cardiac arrhythmias remains a concern as a cause of her syncope. Implantable loop recorder implantation was recommended. Informed consent was obtained. DESCRIPTION OF PROCEDURE: [facility] The left prepectoral area was prepared and draped in the usual sterile fashion. Lidocaine 1% was used for local anesthesia. The tools provided with the sofatutor LINQ II device was used to make a subcutaneous pocket anterior to the left fourth intercostal space into which the device was placed and the skin edges were closed using Dermabond and Steri-Strips. She tolerated the procedure well. The serial number of the device is [id number]. Job ID: [id number] DocumentID: [id number] Dictated Date: 12/01/2020 09:21:14 Business Info Consultant Date: 12/01/2020 12:55:45 Dictated By: AGUSTO KENT MD, MA, FACP, FACC,
--- NOTE | 2020-12-01 17:13 | Progress Note - Cardiology ---
Cardiology SOAP Progress Note Subjective: No cp or palp or shortness of breath No syncope since admission No n/v/d Objective: I&O/Vital Signs 12/01/20 12/01/20 12/01/20 12/01/20 06:41 07:43 08:00 10:00 Temp 35.1 36.2 Pulse 57 59 59 Resp 16 16 B/P (MAP) 180/81 (114) Pulse Ox 97 97 97 O2 Delivery Room Air Room Air Room Air 11/30/20 23:59 Intake Total 910 ml Balance 910 ml Constitutional: AAO x 3, well-developed, well-nourished Respiratory: No accessory muscle use; other (good, bilateral air entry) Cardiovascular: regular rate-rhythm, S1 and S2, systolic murmur (soft CHET at card base) Gastrointestional: No tender; soft; No guarding, No rebound; audible bowel sounds Extremities: No clubbing, No cyanosis, No significant edema Neurologic/Psychiatric: oriented x 3, other (moves all limbs equally) Skin: No rash on exposed areas, No ulcerations on exposed areas Results/Procedures: Labs Laboratory Tests 12/01/20 05:07: White Blood Count 5.0, Red Blood Count 3.20L, Hemoglobin 10.5L, Hematocrit 34L, Mean Corpuscular Volume 106H, Mean Corpuscular Hemoglobin 33, Mean Corpuscular Hemoglobin Concent 31L, Red Cell Distribution Width 14.9H, Platelet Count 236, Mean Platelet Volume 9.3, Immature Granulocyte % (Auto) 0, Neutrophils (%) (A uto) 34L, Lymphocytes (%) (Auto) 48H, Monocytes (%) (Auto) 6, Eosinophils (%) (Auto) 11H, Basophils (%) (Auto) 1, Neutrophils # (Auto) 1.7L, Lymphocytes # (Auto) 2.4, Monocytes # (Auto) 0.3, Eosinophils # (Auto) 0.5H, Basophils # (Auto) 0.1, Immature Granulocyte # (Auto) 0.0, Sodium Level 138, Potassium Level 4.1, Chloride Level 109H, Carbon Dioxide Level 22, Anion Gap 7, Blood Urea Nitrogen 23H, Creatinine 0.85, Estimat Glomerular Filtration Rate 63, BUN/Creatinine Ratio 27, Glucose Level 101, Calcium Level 8.9, Corrected Calcium 9.3, Total Bilirubin 0.6, Aspartate Amino Transf (AST/SGOT) 12, Alanine Aminotransferase (ALT/SGPT) 12, Alkaline Phosphatase 39L, Total Protein 5.8L, Albumin 3.5 A/P: Assessment: Syncope of undetermined etiology - Carotid u/s on 11/30/20: Mild bilateral carotid plaque. There is no evidence of a hemodynamically significant stenosis. 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
== END 2020-12-01 10:00 | disposition home or self-care (01) ==
LOC: EDUNIT# 10:06 → ER FS 10:07 → UNDOADMOB 13:07 → 4TH 13:07 → UNDODISOB 12-01 11:31
PROVIDERS: ADMIT Internal Medicine; ATTEND Internal Medicine
DX: R55 Syncope and collapse (principal); I65.23 Occlusion and stenosis of bilateral carotid arteries; I45.10 Unspecified right bundle-branch block; I10 Essential (primary) hypertension; R00.1 Bradycardia, unspecified; R54 Age-related physical debility; Z79.899 Other long term (current) drug therapy; M19.90 Unspecified osteoarthritis, unspecified site; R42 Dizziness and giddiness
CPT/HCPCS: 33285; 36415; 71045; 80048; 80053 ×2; 83735; 84443; 84484 ×2; 85025 ×3; 93005; 93306; 93880; 97162; 99284; C1764; G0378

== ENCOUNTER 2021-01-08 16:00 | Day surgery (SDC) | payer MEDICARE ==
[~2021-01-08] VITALS: Ht 157 cm; Wt 81.7 kg
[2021-01-08 14:51] LABS: ALBUMIN 4.5 GM/DL (3.2-4.5); BILIRUBIN,TOTAL 0.9 MG/DL (0.1-1.0); CALCIUM 9.9 MG/DL (8.5-10.1); CREATININE SERUM 0.84 MG/DL (0.60-1.30); POTASSIUM 4.5 MMOL/L (3.6-5.0); PROTHROMBIN TIME PATIENT 13.3 SEC (12.2-14.7); TOTAL PROTEIN 7.5 GM/DL (6.4-8.2)
[2021-01-08 14:53] LABS: HEMATOCRIT 41 % (35-52); HEMOGLOBIN 13.1 g/dL (11.5-16.0); MEAN CORPUSCULAR HEMOGLOBIN 33 pg (25-34); MEAN CORPUSCULAR HGB CONC 32 g/dL (32-36); MEAN CORPUSCULAR VOLUME 104 fL (80-99); MEAN PLATELET VOLUME 9.7 fL (9.0-12.2); PLATELET COUNT 320 10^3/uL (130-400); WHITE BLOOD COUNT 5.9 10^3/uL (4.3-11.0)
[~2021-01-08 16:00] MED LIST: ALEN70TA80 PO; AMLO-251 PO; ASPI-1238 PO; CALC-823 PO; CHOL-34 PO; HEParin 1000 UNIT/ML (10ML VIAL) FOR BOLUS ONE; LIDOCAINE 1% INJ 20 ML 20 ML VIAL ONE; MECL-149 PO; MIDAZOLAM 5 MG/5 ML (VERSED) VIAL ONE; NF-DICLTB PO; NS IV 1000 ML 1,000 ML IV SCH; NS IV 1000 ML 2,000 ML ONE; OMG1KC PO; VIT1TABL26 PO; ceFAZolin INJECTION 1,000 MG ONE; ceFAZolin INJECTION 1,000 MG VIAL IV ONE; fentaNYL INJ 100 MCG/2 ML AMP ONE
--- NOTE | 2021-01-08 16:36 | Cardiac Procedure Note-CS/ASA ---
Pre-Procedure Note Pre-Op Procedure Note H&P Reviewed The H&P was reviewed, patient examined and no changes noted. Date H&P Reviewed: Jan 08, 2021 Time H&P Reviewed: 14:45 Conscious Sedation Pre-Proced Time 14:45 ASA Score 3 For ASA 3 and 4: Consider anesthesia and medical clearance. Also, for patients with a history of failed moderate sedation consider anesthesia. Airway Lungs Heart ASA score ASA 1: a normal healthy patient ASA 2: a patient with a mild systemic disease (mid diabetes, controlled hypertension, obesity ASA 3: a patient with a severe systemic disease that limits activity (angina, COPD, prior Myocardial infarction) ASA 4: a patient with an incapacitating disease that is a constant threat to life (CHF, renal failure) ASA 5: a moribund patient not expected to survive 24 hrs. (ruptured aneurysm) ASA 6: a declared brain- patient whose organs are being harvested. For emergent operations, add the letter E after the classification Mallampati Classification Grade 2 Sedation Plan Analgesia, Amnesia, Plan communicated to team members, Discussed options with patient/fam, Discussed risks with patient/fam The patient is an appropriate candidate to undergo the planned procedure, sedation, and anesthesia. The patient immediately re-assessed prior to indication. AGUSTO KENT MD FACP FAC [facility]S Jan 08, 2021 16:36
[2021-01-08] MEDS ORDERED: NS IV 1000 ML 1,000 ML IV SCH (16:45)
[2021-01-08] MEDS ORDERED: NON-FORMULARY MEDICATION 1 EA EA (Alendronate Sodium 70 MG) PO SCH (16:45)
[2021-01-08] MEDS ORDERED: PATIENT MAY USE OWN MEDS, ALL PO SCH (16:45)
--- NOTE | 2021-01-08 18:31 | Diagnostic Imaging Report ---
HISTORY: Post pacemaker placement. TECHNIQUE: Two views of the chest. COMPARISON: 11/29/2020. FINDINGS: Lung volumes are normal. There is mildly increased airspace opacity at the left lung base. There is no pleural effusion or pneumothorax. The cardiac silhouette is normal in size. A site monitor device is noted. Left-sided pacemaker is noted. No acute osseous abnormality is seen. IMPRESSION: 1. Left pacemaker. No pneumothorax seen. 2. Airspace opacity in the left lung base may represent atelectasis or infiltrate. Dictated by: Dictated on workstation # [id number]
[2021-01-08 20:00] VITALS: BP 120/64
[2021-01-08 20:04] VITALS: BP 120/110
[2021-01-08] MEDS: ceFAZolin INJECTION 500 MG in NS (IVPB) 50 ML IV SCH (21:19)
[2021-01-09] VITALS: BP 149/65
[2021-01-09] MEDS: ACETAMINOPHEN 325 MG TABLET PO PRN ×2 (00:35→07:07)
--- NOTE | 2021-01-09 00:47 | OPERATIVE REPORT ---
DATE OF SERVICE: 01/08/2021 PREOPERATIVE DIAGNOSES: Syncope, intermittent complete heart block seen on implantable loop recorder. POSTOPERATIVE DIAGNOSES: Syncope, intermittent complete heart block seen on implantable loop recorder. PROCEDURE: Dual chamber pacemaker implantation. CONSENT: Dual chamber pacemaker implantation was carried out after having obtained an informed consent. DESCRIPTION OF PROCEDURE: [facility] in a fasting state. The left prepectoral area was prepared and draped in the usual sterile fashion. Lidocaine 1% was infused to local anesthesia. Modified Seldinger technique used to advance two guidewires through separate sticks into the left subclavian vein and the tip of the wire was placed in the right atrium. Sharp and blunt dissection was used to make a pacemaker pocket. Good hemostasis was assured. The guidewires were used to advance sheaths and the guidewires were removed. The sheaths were used to advance leads and the sheaths were removed. All lead manipulation was carried out under fluoroscopy. The right ventricular lead was placed at the mid septum and actively fixed. Good capture and sensing thresholds were obtained. The atrial lead was placed at the right atrial appendage and actively fixed. Good sensing and capture thresholds were obtained. There was no diaphragmatic stimulation with either lead with the 10 volts pacing. The pocket was thoroughly irrigated with saline. Good hemostasis was assured. The leads had been sutured to the prepectoral fascia using 0 Ethibond and sleeves. The leads were then attached to a dual chamber pacemaker. The pacemaker and the leads were placed in the pacemaker pocket and the pocket was closed in 2 layers using 3.0 Vicryl. The patient tolerated the procedure well. The atrial lead is Medtronic [id number] with serial #[id number]. The ventricular lead is Medtronic [id number] with serial #[id number]. The pacemaker is Medtronic model [id number] with serial #[id number]. The P-wave amplitude was 2.1 millivolts. The R-wave amplitude was 5 millivolts. Atrial capture threshold was 0.5 volts at 0.4 milliseconds. Ventricular capture threshold was 1.5 volts at 0.4 milliseconds. Job ID: [id number] DocumentID: [id number] Dictated Date: 01/08/2021 16:45:21 Case Aide Date: 01/09/2021 00:46:14 Dictated By: AGUSTO KENT MD, MA, FACP, FACC,
[2021-01-09 04:00] VITALS: BP 161/77
[2021-01-09 06:08] LABS: HEMATOCRIT 35 % (35-52); HEMOGLOBIN 10.9 g/dL (11.5-16.0); MEAN CORPUSCULAR HEMOGLOBIN 33 pg (25-34); MEAN CORPUSCULAR HGB CONC 31 g/dL (32-36); MEAN CORPUSCULAR VOLUME 105 fL (80-99); MEAN PLATELET VOLUME 9.1 fL (9.0-12.2); PLATELET COUNT 230 10^3/uL (130-400); WHITE BLOOD COUNT 4.9 10^3/uL (4.3-11.0)
[2021-01-09 06:26] LABS: ALBUMIN 3.5 GM/DL (3.2-4.5)
[2021-01-09 06:28] LABS: CALCIUM 8.9 MG/DL (8.5-10.1)
[2021-01-09 06:29] LABS: TOTAL PROTEIN 5.6 GM/DL (6.4-8.2)
[2021-01-09 06:31] LABS: BILIRUBIN,TOTAL 0.9 MG/DL (0.1-1.0)
[2021-01-09 06:33] LABS: CREATININE SERUM 0.74 MG/DL (0.60-1.30)
[2021-01-09] MEDS: ceFAZolin INJECTION 500 MG in NS (IVPB) 50 ML IV SCH (06:53)
[2021-01-09] MEDS ORDERED: MULTIVIT W/MINERALS TAB (THERAGRAN M) PO SCH (07:00)
[2021-01-09 07:30] VITALS: BP 160/76
[2021-01-09] MEDS ORDERED: CALCIUM CARBONATE 600 MG (CALCARB) TAB PO SCH (08:00)
[2021-01-09] MEDS ORDERED: [UNRECOGNIZED DRUG - OTHER] PO SCH (09:00)
[2021-01-09] MEDS ORDERED: NON-FORMULARY MEDICATION 1 EA EA (Vit A,C & E/Lutein/Minerals (Ocuvite with Lutein Tablet) PO SCH (09:00)
[2021-01-09] MEDS ORDERED: DICLOFENAC PO SCH (09:00)
[2021-01-09] MEDS ORDERED: VITAMIN D3 25 MCG (1,000 UNITS) TABLET PO SCH (09:00)
[2021-01-09] MEDS ORDERED: MISOPROSTOL PO SCH (09:00)
[2021-01-09] MEDS ORDERED: amLODIPine 10 MG (NORVASC) TAB PO SCH (09:00)
[2021-01-09] MEDS ORDERED: OMEGA 3 (FISH OIL) 1000 MG CAP PO SCH (09:00)
[2021-01-09] MEDS ORDERED: NON-FORMULARY MEDICATION 1 EA EA (Calcium Carbonate (Calcium) 500 MG) PO SCH (09:00)
[2021-01-09] MEDS ORDERED: MECLIZINE 25 MG (ANTIVERT) TAB PO SCH (09:00)
[2021-01-09] MEDS ORDERED: CEFU500T63 PO (11:06)
--- NOTE | 2021-01-09 11:07 | Discharge Inst-Cardiology ---
Discharge Inst-Cardiac Discharge Medications New Medications: Cefuroxime Axetil (Cefuroxime) 500 Mg Tablet 500 MG PO BID, #10 TAB Continued Medications: Alendronate Sodium (Alendronate Sodium) 70 Mg Tablet 70 MG PO WED, TAB Amlodipine Besylate (Amlodipine Besylate) 10 Mg Tablet 10 MG PO DAILY, TAB Aspirin (Aspirin EC) 81 Mg Tablet.dr 81 MG PO DAILY, TAB Calcium Carbonate (Calcium) 500 Mg Tablet 500 MG PO DAILY, TAB Cholecalciferol (Vitamin D3) (Vitamin D3) 25 Mcg Tablet 25 MCG PO DAILY, TAB Diclofenac/Misoprostol (Arthrotec 75 mg-200 Mcg Tab) 1 Tab Tab 1 TAB PO DAILY, TAB Meclizine HCl (Meclizine HCl) 25 Mg Tablet 25 MG PO DAILY, TAB [place] 3 Polyunsat Fatty Acids (Fish Oil 1,000 mg Capsule) 1,000 Mg Cap 1000 MG PO DAILY, CAP Vit A,C & E/Lutein/Minerals (Ocuvite with Lutein Tablet) 1 Each Tablet 1 EACH PO DAILY, TAB AGUSTO KENT MD FACP [facility] Jan 09, 2021 11:07
--- NOTE | 2021-01-09 11:07 | Discharge Inst-Post Device ---
Discharge Inst-Post Device Follow up/Plan F/u at our office for wound check n 01/12/21 F/u at our office for doctor visit in one month Heart Healthy Diet Do not lift arm on side of device placement above head for 4 weeks. Do not push and pull heavy objects for 4 weeks. Activity as tolerated. No driving for one week. Leave dressing on until follow up at the office. AGUSTO KENT MD FACP FAC CCDS Jan 09, 2021 11:07
--- NOTE | 2021-01-09 11:14 | Progress Note - Cardiology ---
Cardiology SOAP Progress Note Subjective: No cp or palp or syncope or shortness of breath No focal weakness No n/v/d No swelling Feels well and wishes to go home Objective: I&O/Vital Signs 01/09/21 01/09/21 01/09/21 01/09/21 00:00 01:00 04:00 07:00 Pulse 70 80 76 81 Resp 16 18 B/P (MAP) 149/65 (93) 161/77 (105) Pulse Ox 97 97 O2 Delivery Room Air Room Air 01/09/21 01/09/21 07:30 08:18 Temp 36.7 Pulse 76 Resp 13 B/P (MAP) 160/76 (104) Pulse Ox 97 O2 Delivery Room Air Room Air 01/09/21 00:00 Intake Total 380 ml Balance 380 ml Device Insertion Site: without hematoma Bruising: mild bruising Constitutional: AAO x 3, well-developed, well-nourished Respiratory: No accessory muscle use; other (good, bilat air entry) Cardiovascular: regular rate-rhythm, S1 and S2, systolic murmur (soft CHET at card base) Gastrointestional: No tender; soft; No guarding, No rebound; audible bowel sounds Extremities: other (L arm in sling); No clubbing, No cyanosis, No significant edema Neurologic/Psychiatric: oriented x 3, other (moves all her limbs equally) Results/Procedures: Labs Laboratory Tests 01/08/21 14:15: White Blood Count 5.9, Red Blood Count 3.96, Hemoglobin 13.1, Hematocrit 41, Mean Corpuscular Volume 104H, Mean Corpuscular Hemoglobin 33, Mean Corpuscular Hemoglobin Concent 32, Red Cell Distribution Width 14.4, Platelet Count 320, Mean Platelet Volume 9.7, Prothrombin Time 13.3, INR Comment 1.0, Activated Partial Thromboplast Time 28, Sodium Level 139, Potassium Level 4.5, Chloride Level 106, Carbon Dioxide Level 22, Anion Gap 11, Blood Urea Nitrogen 20H, Creatinine 0.84, Estimat Glomerular Filtration Rate 64, BUN/Creatinine Ratio 24, Glucose Level 96, Calcium Level 9.9, Corrected Calcium 9.5, Total Bilirubin 0.9, Aspartate Amino Transf (AST/SGOT) 18, Alanine Aminotransferase (ALT/SGPT) 15, Alkaline Phosphatase 48, Total Protein 7.5, Albumin 4.5, Triglycerides Level 75, Cholesterol Level 166, LDL Cholesterol Direct 120, VLDL Cholesterol 15, HDL Cholesterol 49 01/09/21 05:30: White Blood Count 4.9, Red Blood Count 3.32L, Hemoglobin 10.9L, Hematocrit 35, Mean Corpuscular Volume 105H, Mean Corpuscular Hemoglobin 33, Mean Corpuscular Hemoglobin Concent 31L, Red Cell Distribution Width 14.4, Platelet Count 230, Mean Platelet Volume 9.1, Sodium Level 137, Potassium Level 4.0, Chloride Level 108H, Carbon Dioxide Level 21, Anion Gap 8, Blood Urea Nitrogen 17, Creatinine 0 .74, Estimat Glomerular Filtration Rate 74, BUN/Creatinine Ratio 23, Glucose Level 92, Calcium Level 8.9, Corrected Calcium 9.3, Total Bilirubin 0.9, Aspartate Amino Transf (AST/SGOT) 13, Alanine Aminotransferase (ALT/SGPT) 13, Alkaline Phosphatase 39L, Total Protein 5.6L, Albumin 3.5 Laboratory Tests 01/08/21 14:15 01/09/21 05:30 A/P: Assessment: Syncope - Carotid u/s on 11/30/20: Mild bilateral carotid plaque. There is no evidence of a hemodynamically significant stenosis. - Echo on 11/30/20: LVEF 60-65%, mildly dilated LA, aortic valve sclerosis w/o stenosis, trivial AI, PASP 15-20 mmHg - ILR implanted on 12/01/20 - 6 second pause on 12/06/20 recorded on ILR; multiple long pauses seen on ILR transmission of 12-29-20 - s/p permanent dual chamber pacemaker on 01/08/21, functioning normally on interrogation of 01/09/21 Chronic RBBB Hypertension Chronic joint pains Plan: * Pacemaker and post-op care instructions given. Questions answered * Ceftin 500 mg bid x 5 days * Continue previous home meds (see d/c orders) * Lab work and x-ray report reviewed. No pneumothorax. LLL atelectasis vs infiltrate reported on CXR. No clinical evidence of pneumonia * Close outpt f/u advised [facility]O KENT MD [facility] Jan 09, 2021 11:14
--- NOTE | 2021-01-09 11:20 | Cardiology Discharge Summary ---
Diagnosis/Chief Complaint Date of Admission 01/08/21 Date of Discharge 01/09/21 Final/Discharge Diagnosis Syncope - Carotid u/s on 11/30/20: Mild bilateral carotid plaque. There is no evidence of a hemodynamically significant stenosis. - Echo on 11/30/20: LVEF 60-65%, mildly dilated LA, aortic valve sclerosis w/o stenosis, trivial AI, PASP 15-20 mmHg - ILR implanted on 12/01/20 - 6 second pause on 12/06/20 recorded on ILR; multiple long pauses seen on ILR transmission of 12-29-20 - s/p permanent dual chamber pacemaker on 01/08/21, functioning normally on interrogation of 01/09/21 Chronic RBBB Hypertension Chronic joint pains Chief Complaint/HPI Chief Complaint/HPI Please see our progress note of today's date for condition at discharge Discharge Summary Procedures Perm dual-chamber pacemaker implantation on 01/09/21 Hospital Course Pending Labs Laboratory Tests 01/09/21 05:30: White Blood Count 4.9, Red Blood Count 3.32, Hemoglobin 10.9, Hematocrit 35, Mean Corpuscular Volume 105, Mean Corpuscular Hemoglobin 33, Mean Corpuscular Hemoglobin Concent 31, Red Cell Distribution Width 14.4, Platelet Count 230, Mean Platelet Volume 9.1, Sodium Level 137, Potassium Level 4.0, Chloride Level 108, Carbon Dioxide Level 21, Anion Gap 8, Blood Urea Nitrogen 17, Creatinine 0.74, Estimat Glomerular Filtration Rate 74, BUN/Creatinine Ratio 23, Glucose Level 92, Calcium Level 8.9, Corrected Calcium 9.3, Total Bilirubin 0.9, Aspartate Amino Transf (AST/SGOT) 13, Alanine Aminotransferase (ALT/SGPT) 13, Alkaline Phosphatase 39, Total Protein 5.6, Albumin 3.5 Discussion & Recommendations Home Medications Reviewed patient Home Medication Reconciliation performed by pharmacy medication reconciliations certified control systems technician and/or nursing. Patients Allergies have been reviewed. Discharge Home Medications: Reviewed and agree with Discharge Medication list on patient's Discharge Instruction sheet Instructions to patient/family F/u at our office for wound check n 01/12/21 F/u at our office for doctor visit in one month AGUSTO KENT MD [facility] Jan 09, 2021 11:20
[2021-01-09 11:30] VITALS: BP 146/62
== END 2021-01-09 12:15 | disposition home or self-care (01) ==
LOC: CSD 17:20 → CATH 01-09 12:15
PROVIDERS: ATTEND Internal Medicine Cardiovascular Disease
DX: I45.10 Unspecified right bundle-branch block (principal); I44.39 Other atrioventricular block; I45.9 Conduction disorder, unspecified; I65.23 Occlusion and stenosis of bilateral carotid arteries; I10 Essential (primary) hypertension; G89.29 Other chronic pain; M25.50 Pain in unspecified joint; Z79.899 Other long term (current) drug therapy; Z79.82 Long term (current) use of aspirin
CPT/HCPCS: 33208; 71046; 80053 ×2; 80061; 85027 ×2; 85610; 85730; 87081; 93005; C1785; C1898 ×2; 36415

== ENCOUNTER → 2022-02-01 | Outpatient (CLI) | payer MEDICARE ==
[~2022-02-01] VITALS: Ht 157 cm; Wt 78.0 kg
[~2022-02-01] MED LIST changes: +CATHETER FLUSH 10 ML SYR IVP PRN; +CEFU500T63 PO; -HEParin 1000 UNIT/ML (10ML VIAL) FOR BOLUS ONE; -LIDOCAINE 1% INJ 20 ML 20 ML VIAL ONE; -MIDAZOLAM 5 MG/5 ML (VERSED) VIAL ONE; -NS IV 1000 ML 1,000 ML IV SCH; -NS IV 1000 ML 2,000 ML ONE; +REGADENOSON 0.4 MG/5 ML SYR (LEXISCAN) IV ONE; -ceFAZolin INJECTION 1,000 MG ONE; -ceFAZolin INJECTION 1,000 MG VIAL IV ONE; -fentaNYL INJ 100 MCG/2 ML AMP ONE
[2022-02-01 13:10] VITALS: BP 195/96
--- NOTE | 2022-02-03 09:38 | STRESS TEST ---
DATE OF SERVICE: 02/01/2022 RESTING AND POST REGADENOSON TECHNETIUM-99M TETROFOSMIN SPECT CT IMAGING ORDERING PHYSICIAN: Diane Velasquez APRN PRIMARY PHYSICIAN: Dr. Trammell. CLINICAL DIAGNOSIS: Shortness of breath. Baseline images were carried out after injection of 10.11 mCi of technetium-99m Tetrofosmin. This was followed by 0.4 mg Regadenoson and 32.8 mCi of technetium-99m Tetrofosmin for stress imaging. The electrocardiogram showed sinus rhythm with isolated premature ventricular contractions. This did not change significantly with the regadenoson infusion. Review of images at rest and following stress does not indicate any distinct evidence of significant myocardial ischemia or infarction. Gated images show normal global left ventricular systolic function with normal regional wall motion. Left ventricular ejection fraction is calculated to be 69%. CONCLUSIONS: 1. No evidence of significant myocardial ischemia or infarction on this study. 2. Normal regional wall motion. 3. Normal global left ventricular systolic function with a calculated ejection fraction of 69%. Job ID: [id number] DocumentID: [id number] Dictated Date: 02/03/2022 09:11:56 Food Bagging Machine Operator Date: 02/03/2022 09:37:17 Dictated By: AGUSTO KENT MD, MA, FACP, FACC,
== END ==
LOC: CARD 11:27
PROVIDERS: ATTEND Nurse Practitioner Family
DX: R06.09 Other forms of dyspnea (principal)
CPT/HCPCS: 78452; 93017; A9502